=== PATIENT | male | born 1995 | race American Indian/Alaskan Native ===

== ENCOUNTER 2020-08-22 17:05 | Emergency (ER) | payer BC ==
--- NOTE | 2020-08-22 18:01 | Emergency Department Report ---
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 Patient that he was sitting, had a cramp type of pain to the right lateral chest wall. He got up to walk it off and started to have diaphoresis. Patient then went to the bathroom to remove his police body gear. He complains of some mild shortness of breath during the episode. No nausea, no vomiting, no syncope reported. Upon EMS arrival BP was only 181/106 therefore he was transferred to the ED for evaluation. Patient denies cough or cold symptoms, loss of taste or smell, or Covid symptoms. Last Covid test was negative. Does not smoke cigarettes. Positive family history of CAD. No history of PE/DVT, recent travel, calf tenderness, leg edema, pleuritic chest pain, or persistent shortness of breath. - Related Data Home Medications Medication Instructions Recorded Confirmed Last Taken No Known Home Medications [No 08/22/20 08/22/20 Unknown Reported Home Medications] Allergies Allergy/AdvReac Type Severity Reaction Status Date / Time No Known Allergies Allergy Unverified 08/22/20 18:01 Heart Score - HEART Score History: Slightly suspicious EKG: Normal Age: < 45 Risk factors: 1-2 risk factors Troponin: < normal limit (not performed, right sided atypical chest pain) HEART Score: 1 ED Review of Systems ROS: Stated complaint: BLOOD PRESSURE Other details as noted in HPI Comment: All other systems reviewed and negative ED Past Medical Hx - Past Medical History Hx Asthma: Yes - Surgical History Past Surgical History?: No - Social History Smoking Status: Never Smoker - Medications Home Medications: Home Medications Medication Instructions Recorded Confirmed Last Taken Type No Known Home Medications [No 08/22/20 08/22/20 Unknown History Reported Home Medications] ED Physical Exam - General Limitations: No Limitations - Other Other exam information: General: No acute distress Head: Atraumatic Eyes: normal appearance ENT: Moist mucous membranes Neck: Normal appearance, no midline tenderness Chest: Clear to auscultation bilaterally, right chest wall nontender CV: Regular rate and rhythm Abdomen: Soft, normal bowel sounds, nontender, nondistended, no rebound or gu arding Back: Normal inspection Extremity: Normal inspection, full range of motion, no calf tenderness or leg edema Neuro: Alert O x 3, no facial asymmetry, speech clear, no gross motor sensory deficit Psych: Appropriate behavior Skin: No rash ED Course Vital Signs 08/22/20 08/22/20 17:30 19:25 Temperature 98.1 F 98.2 F Pulse Rate 60 62 Respiratory 16 16 Rate Blood Pressure 147/97 Blood Pressure 142/80 [Right] O2 Sat by Pulse 100 100 Oximetry RAMON score - Ramon Score Age > 65: (0) No Aspirin use within the Past 7 Days: (0) No 2 or more Angina events in past 24 hrs: (0) No Known CAD with more than 50% Stenosis: (0) No Elevated Cardiac Markers: (0) No (Not performed due to low risk and right-sided chest) ST Deviation Greater than 0.5mm: (0) No ED Medical Decision Making - EKG Data -: EKG Interpreted by [facility] EKG shows normal: sinus rhythm, ST-T waves (no stemi) Rate: bradycardia (57) - Radiology Data Radiology results: report reviewed cxr: no acute findings. - Medical Decision Making PERC PE score 0 Patient had an episode of right-sided chest wall cramp with associated diaphoresis and mild shortness of breath while wearing his police gear. Patient was alarmed because his blood pressure was 181/106 in the field and therefore came to the ED for evaluation. Upon arrival BP 147/97 and patient is asymptomatic. ED EKG as well as chest x-ray. Mild elevated BP noted but no signs of hypertensive emergency. Patient will be discharged home with PMD follow-up encouraged Critical Care Time: No Critical care attestation.: If time is entered above; I have spent that time in minutes in the direct care of this critically ill patient, excluding procedure time. ED Disposition Clinical Impression: Right-sided chest pain, Diaphoresis, Elevated blood pressure reading Disposition: -01 TO HOME OR SELFCARE Is pt being admited?: No Does the pt Need Aspirin: No Condition: Stable Instructions: Nonspecific Chest Pain, Adult, Preventing Hypertension, Chest Pain (ED) Additional Instructions: Follow-up with your doctor or doctor/clinic provided to recheck and monitor your blood pressure determine if future treatment is needed. Return if symptoms worsen as indicated by your discharge instructions. Referrals: BRENT TAM MD [Primary Care Provider] - 3-5 Days [facility] [Provider Group] - 3-5 Days WALT LEVINE MD [Staff Physician] - 3-5 Days Time of Disposition: 19:28
--- NOTE | 2020-08-22 18:58 | XRay Report ---
CHEST 2 VIEWS INDICATION / CLINICAL INFORMATION: Chest pain, diaphoresis. COMPARISON: None available. FINDINGS: SUPPORT DEVICES: None. HEART / MEDIASTINUM: No significant abnormality. LUNGS / PLEURA: No significant pulmonary or pleural abnormality. No pneumothorax. ADDITIONAL FINDINGS: No significant additional findings. IMPRESSION: 1. No acute findings. Signer Name: Bryce Goldsmith MD Signed: 08/22/2020 6:54 PM Workstation Name: [id number]
[2020-08-22 19:27] VITALS: BP 142/80
== END 2020-08-22 19:32 | disposition home or self-care (01) ==
LOC: ED 17:05
DX: R07.89 Other chest pain (principal); R61 Generalized hyperhidrosis; R03.0 Elevated blood-pressure reading, without diagnosis of hypertension; R06.02 Shortness of breath; J45.909 Unspecified asthma, uncomplicated
CPT/HCPCS: 71046; 93005